=== PATIENT | male | born 1970 | race American Indian/Alaskan Native ===

== ENCOUNTER 2023-09-28 08:37 | Outpatient (OUT) | payer OTHER, SELFPAY ==
--- NOTE | 2023-09-28 08:42 | US_ITS ---
The [address] [address] Patient Name: NABEEL BALES MRN: [id number] date: 1970 Sex: M Assigned Patient Location: US Current Patient Location: US Accession/Order Number: [id number] Exam Date: 09/28/2023 08:45 Report Date: 09/28/2023 09:09 At the request of: ANGE VELAZCO Procedure: US soft tissue head and neck US soft tissue head and neck, 09/28/2023 8:45 AM EDT INDICATION: Parotid Mass COMPARISON: There is no appropriate prior study for comparison. There is a homogeneous lesion within the left parotid gland measuring approximately 1.2 x 1.3 x 0.9 cm with mild vascularity. No other associated lesion is noted. No adjacent fluid collection or soft tissue swelling is noted. US/US soft tissue head and neck IMPRESSION: Left parotid solid lesion. Primary epithelial lesion of the parotid should be considered. Benign lesions such as pleomorphic adenoma or malignant such as mucoepidermoid carcinoma. Histopathological correlation is recommended. Electronically authenticated by: SAVAGE ABBASI Date: 09/28/2023 09:09
--- NOTE | 2023-09-28 09:32 | CT_ITS ---
[address] [address] Patient Name: NABEEL BALES MRN: [id number] date: 1970 Sex: M Assigned Patient Location: US Current Patient Location: US Accession/Order Number: [id number] Exam Date: 09/28/2023 09:19 Report Date: 09/28/2023 09:59 At the request of: ANGE VELAZCO Procedure: CT soft tissue neck w con CT soft tissue neck w con, 09/28/2023 9:19 AM EDT INDICATION: Parotid Mass COMPARISON: Ultrasound of the soft tissues of the same date TECHNIQUE: CT imaging of the neck were acquired with contrast. Supplemental 2D reformatted images were generated and reviewed as needed. Dose reduction techniques were achieved by using automated exposure control and/or adjustment of mA and/or kV according to patient size and/or use of iterative reconstruction technique. FINDINGS: No abnormality of the base of skull is noted. The nasopharynx, oropharynx, hypopharynx and oral cavity are unremarkable. There is a 1.2 x 1.3 x 0.9 cm possibly enhancing lesion in the left accessory parotid gland inferior to the left parotid duct with no significant mass effect. It shows Hounsfield unit of 126. The right parotid, submandibular glands are unremarkable. The larynx is unremarkable. No abnormality of paraglottic fat is noted. There is no lymph node enlargement by size criteria. No retropharyngeal lymph node is noted. The thyroid gland is homogeneous. The visualized portions of lungs are unremarkable. There is no suspicious osteolytic or osteoblastic lesion. There are multilevel degenerative changes of cervical spine. CT/CT soft tissue neck w con IMPRESSION: 1.3 cm possibly enhancing lesion within the left accessory parotid gland with no associated lymphadenopathy. Benign such as pleomorphic adenoma or malignant such as mucoepidermoid carcinoma should be considered. Histopathological correlation is recommended. Electronically authenticated by: SAVAGE ABBASI Date: 09/28/2023 09:59
== END 2023-09-28 08:38 | disposition home or self-care (01) ==
LOC: US 08:37
PROVIDERS: PCP Family Medicine; Visit Provider Otolaryngology
DX: K11.8 Other diseases of salivary glands (principal)
CPT/HCPCS: 70491; 76536; Q9967

== ENCOUNTER 2023-10-05 10:28 | Day surgery (SDC) | payer OTHER, SELFPAY ==
--- NOTE | 2023-10-05 10:36 | US_ITS ---
[address] [address] Patient Name: NABEEL BALES MRN: [id number] date: 1970 Sex: M Assigned Patient Location: US Current Patient Location: US Accession/Order Number: [id number] Exam Date: 10/05/2023 10:40 Report Date: 10/05/2023 11:37 At the request of: ANGE VELAZCO Procedure: US biopsy FNA EXAMINATION: US biopsy FNA HISTORY: parotid nodule COMPARISON: Ultrasound soft tissue head and neck 09/28/2023 TECHNIQUE: After obtaining informed consent, an ultrasound-guided biopsy was performed in the usual sterile manner. FINDINGS: IMAGING: Ultrasound guidance BIOPSY NEEDLE: 25-gauge; 3 separate passes SPECIMEN TYPE, #, LOCATION: Fine-needle aspiration, 3 samples, left cheek/parotid 1.3 cm hypoechoic vascular mass. MEDICATION: 1% buffered lidocaine for local anesthesia COMPLICATIONS: None. LABORATORY: Pending OTHER: Negative. US/US biopsy FNA IMPRESSION: Uneventful ultrasound guided biopsy. The patient was instructed to obtain follow up care and biopsy results from the referring physician. Electronically authenticated by: UNIQUE SÁNCHEZ Date: 10/05/2023 11:37
[2023-10-05 10:40] VITALS: BP 113/82; PULSE 79; O2SAT 96
[2023-10-05] MEDS: LIDOCAINE HCL 10 ML, SODIUM BICARBONATE 1 MEQ INJ (11:15)
--- NOTE | 2023-10-05 13:05 | SUR.PREOP ---
09/17/23 Pt instructed on procedure, date, time, and prep.
== END 2023-10-05 11:15 | disposition home or self-care (01) ==
LOC: US 10:29
PROVIDERS: Radiology Diagnostic Radiology; PCP Family Medicine; Visit Provider Otolaryngology
DX: D11.0 Benign neoplasm of parotid gland (principal)
CPT/HCPCS: 10005; 88112; 88305